=== PATIENT | female | born 1975 | race Caucasian/White ===

== ENCOUNTER 2016-06-27 22:33 | Emergency (ER) | payer OTHER ==
[~2016-06-27] VITALS: Ht 144.8 cm; Wt 75.5 kg
[~2016-06-27 22:33] MED LIST: IBUP-1542 PO; ULT50 PO
[2016-06-27 22:35] VITALS: Ht 144.8 cm; Wt 75.5 kg
[2016-06-28] MEDS ORDERED: morphine 4 MG/ML VIAL IV STA (00:40)
[2016-06-28] MEDS ORDERED: ONDANSETRON 4 MG INJ IV STA (00:40)
[2016-06-28 01:28] LABS: BASOPHIL # 0.1 10^3/ul (0.0-0.1); BASOPHILS % 0.5 % (0.0-2.0); EOSINOPHILS # 0.2 10^3/ul (0.0-0.5); EOSINOPHILS % 1.6 % (0.0-7.0); HEMATOCRIT 31.8 % (37.0-47.0); HEMOGLOBIN 10.8 g/dl (12.0-16.0); LYMPHOCYTES % 18.6 % (15.0-51.0); MEAN CORPUSCULAR HGB CONC 34.1 g/dl (32.0-37.0); MEAN PLATELET VOLUME 9.3 fl (7.4-10.4); MONOCYTE # 0.8 10^3/ul (0.3-0.9); MONOCYTES % 7.3 % (0.0-11.0); NEUTROPHIL # 7.7 10^3/ul (1.6-7.5); PLATELET COUNT 283 10^3/UL (140-440); RED BLOOD COUNT 3.61 10^6/ul (4.20-5.40); RED CELL DISTRIBUTION WIDTH 13.9 % (11.5-14.5); UNCORRECTED WBC 10.8 10^3/ul (4.8-10.8); WHITE BLOOD COUNT 10.8 10^3/ul (4.8-10.8)
[2016-06-28 01:29] LABS: ALBUMIN 4.1 g/dl (3.3-4.9)
[2016-06-28 01:29] LABS: ADD UMIC YES; URINE BILIRUBIN (Dip) NEGATIVE (NEGATIVE); URINE BLOOD (Dip) TRACE (NEGATIVE); URINE COLOR LT. YELLOW (YELLOW); URINE GLUCOSE (Dip) NEGATIVE (NEGATIVE); URINE KETONES (Dip) NEGATIVE (NEGATIVE); URINE LEUKOCYTE ESTERASE (Dip) NEGATIVE (NEGATIVE); URINE NITRITE (Dip) NEGATIVE (NEGATIVE); URINE TOTAL PROTEIN (Dip) NEGATIVE (NEGATIVE); URINE UROBILINOGEN (Dip) 0.2 E.U./dL (0.1-1.0)
[2016-06-28 01:30] LABS: POTASSIUM 3.8 mmol/L (3.5-5.1)
[2016-06-28 01:32] LABS: BILIRUBIN,INDIRECT 0.2 mg/dl (0-1.1); BILIRUBIN,TOTAL 0.2 mg/dl (0.2-1.3); CREATININE 0.63 mg/dl (0.44-1.00)
[2016-06-28 01:33] LABS: ALBUMIN/GLOBULIN RATIO 1.1; CALCIUM 8.7 mg/dl (8.4-10.2); CONDITION 1; TOTAL PROTEIN 7.8 g/dl (6.1-8.1)
[2016-06-28 01:36] LABS: BACTERIA,URINE FEW; SQUAMOUS EPITHELIAL CELL,UR MANY; URINE RBCS 0-2 /HPF (0)
--- NOTE | 2016-06-28 01:42 | RADRPT ---
PROCEDURE: CT Abdomen and pelvis without contrast. CLINICAL INDICATION: Abdominal pain. TECHNIQUE: CT scan of the abdomen and pelvis was performed on the [email or web address] LightSpeed 6 4 slice VCT scanner. Contiguous axial images using 2.5 mm slice thickness were obtained from the suhail ng bases to the ischial tuberosities without intravenous contrast. Coronal and sagittal reformatted images were also obtained. Images were reviewed on the PACS workstation. One or more of the following dose reduction techniques were used: - Automated exposure control. - Adjustment of the mA and/or kV according to patient size. - Use of iterative reconstruction technique. Exam CTD/vol = 13.41 mGy. Total exam DLP = 792.76 mGy-cm. COMPARISON: None. FINDINGS: Evaluation of the lung bases demonstrates minimal bibasilar atelectasis. Bilateral breast implants a re present. Abdomen: The liver is normal in size. There is no focal mass or dilatation of the biliary tree. T he gallbladder is not distended. The spleen, pancreas and bilateral adrenal glands are within jose alberto l limits. Bilateral kidneys are normal in size with no contour deforming mass identified. There is no radiopaque renal or ureteral calculus identified. There is no hydronephrosis or hydroureter. T here is no retroperitoneal adenopathy. The abdominal aorta is of normal caliber. There is no abnormal bowel wall thickening or distension. There is no bowel obstruction or free air . A normal appendix is identified. There is no diverticulosis or diverticulitis. There is no asci bucky. Pelvis: The bladder is unremarkable. The uterus is unremarkable. There is a cystic structure with in the right adnexa measuring 2.9 x 2.6 cm. There is a cystic structure within the left adnexa marni uring 1.7 x 1.5 cm. There is mild to moderate hyperdense pelvic free fluid consistent with hemorrha ge. There is no significant pelvic adenopathy. Evaluation of the osseous structures demonstrates no suspicious lytic or blastic lesion. IMPRESSION: Mild to moderate hyperdense pelvic free fluid consistent with hemorrhage and suspicious for a ruptur ed cyst. Further evaluation by pelvic ultrasound is recommended. Right ovarian 2.9 cm cyst. Left ovarian 1.7 cm cyst. .Kishor Ewing MD, MD Date Time Electronically viewed and signed by .Kishor Ewing MD, MD on 06/28/2016 01:42 .T/
[2016-06-28] MEDS ORDERED: ULT50 PO (01:57)
[2016-06-28] MEDS ORDERED: ONDA4TAB14 PO (01:57)
--- NOTE | 2016-06-28 01:57 | ERD ---
ER Documentation Chief Complaint Date/Time DATE: 06/28/16 TIME: 01:53 Chief Complaint B flank pain radiating to the belly since HPI 41-year-old female with no significant past medical history presents the ED complaining of generalized abdominal pain that started 5 days ago. States that she started to have one episode of nonbilious nonbloody vomiting. Describes it as throbbing and rates it a 9 out of 10. States that it radiates to her back. States that her last menses was on June 11, 2016. Denies any fever, chills , chest pain, shortness of breath, diarrhea, rashes. Denies any vaginal discharge, vaginal bleeding. Ports that she is unsure if she has hypo-or hyperthyroidism. Denies any abdominal surgeries. Reports that she has normal bowel movements daily. ROS All systems reviewed and are negative except as per history of present illness. Medications Home Meds Active Scripts Ondansetron (Ondansetron Odt) 4 Mg Tab.rapdis, 4 MG PO Q6H Y for NAUSEA AND/OR VOMITING, #10 TAB Prov:TASHIA NGUYỄN PA-C 06/28/16 Tramadol HCl (Tramadol HCl) 50 Mg Tablet, 50 MG PO Q4 Y for PAIN, #20 TAB Prov:TASHIA NGUYỄN PA-C 06/28/16 Tramadol HCl (Tramadol HCl) 50 Mg Tablet, 50 MG PO Q6 Y for PAIN, #20 TAB 0 Refills Prov:YOEL KENDALL PA-C 10/09/15 Ibuprofen* (Motrin*) 600 Mg Tab, 600 MG PO Q8, #30 TAB 0 Refills Prov:YOEL KENDALL PA-C 10/09/15 Allergies Allergies: Coded Allergies: No Known Allergy (Unverified , 06/27/16) PMhx/Soc Medical and Surgical Hx: pt denies Medical Hx, pt denies Surgical Hx Hx Alcohol Use: No Hx Substance Use: No Hx Tobacco Use: No Physical Exam Vitals Vital Signs Date Time Temp Pulse Resp B/P Pulse Ox O2 Delivery O2 Flow Rate FiO2 06/27/16 22:35 99.2 91 18 135/74 99 Physical Exam Const: [id number], well-nourished. In no acute distress. Head: Atraumatic, normocephalic Eyes: Normal Conjunctiva without injection. No purulent discharge. ENT: Normal external ear, nose. Moist oropharynx without tonsillar exudates. Non -erythematous pharynx. Uvula midline. No drooling. No trismus. Neck: No cervical midline tenderness. Full range of motion. No meningismus. No cervical lymphadenopathy. No JVD. Resp: Clear to auscultation bilaterally. No wheezing, rhonchi, rales, or crackles. No accessory muscle use. No retractions. Cardio: Regular rate and rhythm. No murmurs, rubs or gallops. Abd: Soft, generalized tenderness to palpation, non distended. Normal bowel sounds. No palpable masses. No rebound tenderness. No guarding. Negative McBurney's point. Negative psoas sign. Negative obturator sign. Skin: No petechiae or rashes Back: No midline tenderness. No CVA tenderness. Ext: No cyanosis, or edema. Neur: Awake and alert. Normal gait. Normal coordination. Psych: Normal Mood and Affect Result Diagram: 06/28/169906/28/1699 Results 24 hrs Laboratory Tests Test 06/28/16 01:00 06/28/16 01:09 Alanine Aminotransferase (ALT/SGPT) 21IU/L Albumin 4.1g/dl Albumin/Globulin Ratio 1.10 Alkaline Phosphatase 71IU/L Anion Gap 15 Aspartate Amino Transf (AST/SGOT) 19IU/L Basophils # 0.110^3/ul Basophils % 0.5% Blood Urea Nitrogen 16mg/dl Calcium Level 8.7mg/dl Carbon Dioxide Level 26mmol/L Chloride Level 103mmol/L Creatinine 0.63mg/dl Direct Bilirubin 0.00mg/dl Eosinophils # 0.210^3/ul Eosinophils % 1.6% Globulin 3.70g/dl Glucose Level 100mg/dl Hematocrit 31.8% Hemoglobin 10.8g/dl Indirect Bilirubin 0.2mg/dl Lipase 145U/L Lymphocytes # 2.010^3/ul Lymphocytes % 18.6% Mean Corpuscular Hemoglobin 30.0pg Mean Corpuscular Hemoglobin Concent 34.1g/dl Mean Corpuscular Volume 88.0fl Mean Platelet Volume 9.3fl Monocytes # 0.810^3/ul Monocytes % 7.3% Neutrophils # 7.710^3/ul Neutrophils % 72.0% Nucleated Red Blood Cells # 0.010^3/ul Nucleated Red Blood Cells % 0.0/100WBC Platelet Count 84240^3/UL Potassium Level 3.8mmol/L Red Blood Count 3.6110^6/ul Red Cell Distribution Width 13.9% Sodium Level 140mmol/L Total Bilirubin 0.2mg/dl Total Protein 7.8g/dl White Blood Count 10.810^3/ul Urine Amorphous Phosphates MODERATE Urine Bacteria FEW Urine Bilirubin NEGATIVE Urine Clarity CLEAR Urine Color LT. YELLOW Urine Glucose NEGATIVE% Urine Hemoglobin TRACE Urine Ketones NEGATIVE Urine Leukocyte Esterase NEGATIVE Urine Microscopic RBC 0-2/HPF Urine Microscopic WBC 0-2/HPF Urine Nitrite NEGATIVE Urine Specific [place] 1.020 Urine Squamous Epithelial Cells MANY Urine Total Protein NEGATIVE Urine Urobilinogen 0.2 E.U./dL Urine pH 8.0 Current Medications Medications (Trade) Dose Ordered Sig/Agustin Route PRN Reason Start Time Stop Time Status Last Admin Dose Admin Morphine Sulfate (morphine) 4 mg ONCE STAT IV 06/28/16 00:40 06/28/16 00:43 DC 06/28/16 01:09 Ondansetron HCl (Zofran Inj) 4 mg ONCE STAT IV 06/28/16 00:40 06/28/16 00:43 DC 06/28/16 01:06 Procedures/MDM This is a 41-year-old female presents the ED complaining of generalized abdominal pain that started 5 days ago associated with nonbilious nonbloody vomiting. Patient is afebrile nontoxic appearing. Patient has normal vital signs. Patient was further worked up with CBC, CMP, lipase, UA, urine , CT of the abdomen and pelvis without contrast. Patient's pain and symptoms have improved after treatment with 4 mg IV Zofran, 4 mg IV morphine. CBC: No leukocytosis. No e/o of systemic infection. No e/o anemia. CMP: No e/o severe acidosis, alkalosis, renal failure, diabetic ketoacidosis, liver disease Lipase within normal limits. Urine: No leukocyte esterase, no nitrites, no hematuria. Urine : Negative PROCEDURE: CT Abdomen and pelvis without contrast. CLINICAL INDICATION: Abdominal pain. TECHNIQUE: CT scan of the abdomen and pelvis was performed on the [employer] 64 slice VCT scanner. Contiguous axial images using 2.5 mm slice thickness were obtained from the lung bases to the ischial tuberosities without intravenous contrast. Coronal and sagittal reformatted images were also obtained. Images were reviewed on the PACS workstation. One or more of the following dose reduction techniques were used: - Automated exposure control. - Adjustment of the mA and/or kV according to patient size. - Use of iterative reconstruction technique. Exam CTD/vol = 13.41 mGy. Total exam DLP = 792.76 mGy-cm. COMPARISON: None. FINDINGS: Evaluation of the lung bases demonstrates minimal bibasilar atelectasis. Bilateral breast implants are present. Abdomen: The liver is normal in size. There is no focal mass or dilatation of the biliary tree. The gallbladder is not distended. The spleen, pancreas and bilateral adrenal glands are within normal limits. Bilateral kidneys are normal in size with no contour deforming mass identified. There is no radiopaque renal or ureteral calculus identified. There is no hydronephrosis or hydroureter. There is no retroperitoneal adenopathy. The abdominal aorta is of normal caliber. There is no abnormal bowel wall thickening or distension. There is no bowel obstruction or free air. A normal appendix is identified. There is no diverticulosis or diverticulitis. There is no ascites. Pelvis: The bladder is unremarkable. The uterus is unremarkable. There is a cystic structure within the right adnexa measuring 2.9 x 2.6 cm. There is a cystic structure within the left adnexa measuring 1.7 x 1.5 cm. There is mild to moderate hyperdense pelvic free fluid consistent with hemorrhage. There is no significant pelvic adenopathy. Evaluation of the osseous structures demonstrates no suspicious lytic or blastic lesion. IMPRESSION: Mild to moderate hyperdense pelvic free fluid consistent with hemorrhage and suspicious for a ruptured cyst. Further evaluation by pelvic ultrasound is recommended. Right ovarian 2.9 cm cyst. Left ovarian 1.7 cm cyst. A differential diagnosis considered includes but is not limited to gastritis, GERD, peptic ulcer disease, cholecystitis, choledocholithiasis, cholangitis, pancreatitis, appendicitis, bowel obstruction, ileus, volvulus, nephrolithiasis , pyelonephritis, hepatitis, perforated viscus, diverticulitis, abdominal hernia , acute abdomen, mesenteric ischemia or other emergent conditions. Patient's CAT scan shows bilateral ovarian cysts Pending the pelvic ultrasound, this patient will be signed off to my colleague, JESUSITA Mehta. If pelvic ultrasound is negative, patient will be discharged with a prescription for tramadol and Zofran. Discharge medications: Tramadol, Zofran Follow up with primary care physician in 1-2 days for referral to [facility]. Instructed patient to return to the ED sooner for any worsening symptoms. Patient's questions were answered. Patient understood and agreed with discharge plan. Patient discharged stable. Departure Diagnosis: Primary Impression: Abdominal pain Abdominal location: generalized Qualified Code: R10.84 - Generalized abdominal pain Additional Impression: Ovarian cyst Laterality: bilateral Qualified Code: N83.201 - Cysts of both ovaries Condition: Stable TASHIA NGUYỄN PA-C Jun 28, 2016 01:56
--- NOTE | 2016-06-28 02:45 | RADRPT ---
PROCEDURE: Pelvic ultrasound. CLINICAL INDICATION: Pelvic pain. TECHNIQUE: Multiple sonographic images of the pelvis were obtained utilizing a transabdominal and endovaginal technique. The images were reviewed on a PACS workstation. COMPARISON: None. FINDINGS: The uterus is visualized and measures 9.5 x 4.1 x 5.7 cm. No abnormal uterine mass is identified. M ultiple Nabothian cysts are seen within the cervix. The endometrial echo complex is homogeneous and measures 9.7 mm. There is mild pelvic free fluid with heterogeneous area within the right adnexa and cul-de-sac sugge stive of hemorrhage. The right ovary has a normal echotexture and measures 5.2 x 3.8 x 3.5 cm. The left ovary has a normal echotexture and measures 3.3 x 1.5 x 1.9 cm. There is normal flow to both ovaries. There is a hypoechoic cyst within the right ovary measuring 2.6 x 2.9 x 2.4 cm. No adnexa l masses are identified. IMPRESSION: Mild echogenic pelvic free fluid suggestive of hemorrhage. Right ovarian 2.9 cm cyst. .Kishor Ewing MD, MD Date Time Electronically viewed and signed by .Kishor Ewing MD, MD on 06/28/2016 02:45 .T/
--- NOTE | 2016-06-28 03:01 | QN ---
Documentation Comment LAURENCE Osuna signed out this patient to me with pending ultrasound results. This was reviewed, I spoke to OB Laborist, Dr. Teague, discussed the case with her. Considering patient's pain is improved, patient's hemoglobin is stable, at this time, there is low suspicion for abdominal emergencies. Patient may have ruptured an ovarian cyst, possible hemorrhagic cyst, at this time since patient' s hemodynamically stable and appears well, outpatient management is appropriate , she states most likely patient's possible blood in the pelvic area can be absorbed by the body and can be self-limiting. Patient though is advised to return in 8 hours for reevaluation of symptoms, especially if she has more severe pain, admission is necessary if pain continues to persist and she is dizzy, and hemodynamically stable. At this time, patient was reevaluated, was given IV fluids, normal saline IV bolus here in emergency department, patient was allowed to ambulate, during evaluation, patient did not have any dizziness , did not have any symptoms of hemodynamic instability. I discussed the case with the patient, discussed with her strict return to ER precautions, patient is advised to return in 8 hours, patient agrees with the plan, verbalized understanding. Pain is controlled at this time. Patient is stable at this time. Patient will be discharged according to Duane Richey's instructions. PROCEDURE: Pelvic ultrasound. CLINICAL INDICATION: Pelvic pain. TECHNIQUE: Multiple sonographic images of the pelvis were obtained utilizing a transabdominal and endovaginal technique. The images were reviewed on a PACS workstation. COMPARISON: None. FINDINGS: The uterus is visualized and measures 9.5 x 4.1 x 5.7 cm. No abnormal uterine mass is identified. Multiple Nabothian cysts are seen within the cervix. The endometrial echo complex is homogeneous and measures 9.7 mm. There is mild pelvic free fluid with heterogeneous area within the right adnexa and cul-de-sac suggestive of hemorrhage. The right ovary has a normal echotexture and measures 5.2 x 3.8 x 3.5 cm. The left ovary has a normal echotexture and measures 3.3 x 1.5 x 1.9 cm. There is normal flow to both ovaries. There is a hypoechoic cyst within the right ovary measuring 2.6 x 2.9 x 2.4 cm. No adnexal masses are identified. IMPRESSION: Mild echogenic pelvic free fluid suggestive of hemorrhage. Right ovarian 2.9 cm cyst. .Kishor Ewing MD, Date Time Electronically viewed and signed by .Kishor Ewing MD, on 06/28/2016 02:45 .Andre/ KENNETH PITT NP Jun 28, 2016 03:01
[2016-06-28] MEDS ORDERED: SOD CHLORIDE 0.9% 1,000 ML IV ONE (04:00)
[2016-06-28 04:07] VITALS: BP 104/63; PULSE 67; RESP 18; TEMP 98.1
== END 2016-06-28 04:51 | disposition home or self-care (01) ==
LOC: FTE 22:33
DX: R10.84 Generalized abdominal pain (principal); N83.201 Unspecified ovarian cyst, right side; N83.202 Unspecified ovarian cyst, left side; R11.10 Vomiting, unspecified; R10.2 Pelvic and perineal pain
CPT/HCPCS: 74176; 76830; 76856; 80053; 81001; 81003; 83690; 85025; J2270; J2405; J7030; 36415; 96374; 96375

== ENCOUNTER 2017-05-29 18:58 | Emergency (ER) | payer OTHER ==
[~2017-05-29] VITALS: Ht 144.8 cm; Wt 75.3 kg
[~2017-05-29 18:58] MED LIST changes: +ONDA4TAB14 PO; +TRAM50TA2 PO; -ULT50 PO
[2017-05-29 19:05] VITALS: Ht 144.8 cm; Wt 75.3 kg
--- NOTE | 2017-05-29 20:27 | ERD ---
ER Documentation Chief Complaint Chief Complaint STANLEY since this AM, no injury nor Neuro deficits HPI 42-year-old female presents here to emergency department for complaints of headache as throbbing pain, 6/10 scale, not better or worse with anything. Together with a headache pain, sharp pain,6/10 scale, accompanied with palpitations and nausea. This has been resolved, the headache has continued. Patient has had this type of headache long time before, felt the same way. Patient did not take any medications to help with symptoms. Patient has history of hypothyroidism. Patient also has history of hyperlipidemia. ROS All systems reviewed and are negative except as per history of present illness. Medications Home Meds Active Scripts Ondansetron (Ondansetron Odt) 4 Mg Tab.rapdis, 4 MG PO Q6H Y for NAUSEA AND/OR VOMITING, #10 TAB Prov:TASHIA NGUYỄN PA-C 06/28/16 Tramadol HCl (Tramadol HCl) 50 Mg Tablet, 50 MG PO Q4 Y for PAIN, #20 TAB Prov:TASHIA NGUYỄN PA-C 06/28/16 Tramadol HCl (Tramadol HCl) 50 Mg Tablet, 50 MG PO Q6 Y for PAIN, #20 TAB 0 Refills Prov:YOEL KENDALL PA-C 10/09/15 Ibuprofen* (Motrin*) 600 Mg Tab, 600 MG PO Q8, #30 TAB 0 Refills Prov:YOEL KENDALL PA-C 10/09/15 Allergies Allergies: Coded Allergies: No Known Allergy (Unverified , 06/27/16) PMhx/Soc Medical and Surgical Hx: pt denies Surgical Hx History of Surgery: No Anesthesia Reaction: No Hx Neurological Disorder: No Hx Respiratory Disorders: No Hx Cardiac Disorders: No Hx Psychiatric Problems: No Hx Miscellaneous Medical Probl: Yes (HYPOTHYROID) Hx Alcohol Use: No Hx Substance Use: No Hx Tobacco Use: No Smoking Status: Never smoker FmHx Family History: No coronary disease, No diabetes, No other Physical Exam Vitals Vital Signs Date Time Temp Pulse Resp B/P Pulse Ox O2 Delivery O2 Flow Rate FiO2 05/29/17 19:05 97.7 88 20 134/82 98 Physical Exam GENERAL: The patient is well developed and appropriate for usual state of health, in no apparent distress. CHEST: Clear to auscultation bilaterally. There are no rales, wheezes or rhonchi. HEART: Regular rate and rhythm. No murmurs, clicks, rubs or gallops. No S3 or S4. ABDOMEN: Soft, nontender and nondistended. Good bowel sounds. No rebound or guarding. No gross peritonitis. No gross organomegaly or masses. No Herndon sign or McBurney point tenderness. BACK: No midline or flank tenderness. EXTREMITIES: Equal pulses bilaterally. There is no peripheral clubbing, cyanosis or edema. No focal swelling or erythema. Full range of motion. Grossly neurovascularly intact. NEURO: Alert and oriented. Cranial nerves 2-12 intact. Motor strength in all 4 extremities with 5/5 strength. Sensation grossly intact. Normal speech and gait. Negative Romberg sign. Negative pronator drift. SKIN: There is no apparent rash or petechia. The skin is warm and dry. HEMATOLOGIC AND LYMPHATIC: There is no evidence of excessive bruising or lymphedema. No gross cervical, axillary, or inguinal lymphadenopathy. Result Diagram: 05/29/17202905/29/17 2030 Results 24 hrs Laboratory Tests Test 05/29/17 20:30 White Blood Count 12.310^3/ul Red Blood Count 4.3410^6/ul Hemoglobin 12.5g/dl Hematocrit 38.2% Mean Corpuscular Volume 88.0fl Mean Corpuscular Hemoglobin 28.8pg Mean Corpuscular Hemoglobin Concent 32.7g/dl Red Cell Distribution Width 13.1% Platelet Count 78643^3/UL Mean Platelet Volume 11.4fl Neutrophils % 72.4% Lymphocytes % 19.2% Monocytes % 6.4% Eosinophils % 1.1% Basophils % 0.5% Nucleated Red Blood Cells % 0.0/100WBC Neutrophils # 8.910^3/ul Lymphocytes # 2.410^3/ul Monocytes # 0.810^3/ul Eosinophils # 0.110^3/ul Basophils # 0.110^3/ul Nucleated Red Blood Cells # 0.010^3/ul Sodium Level 139mmol/L Potassium Level 4.0mmol/L Chloride Level 97mmol/L Carbon Dioxide Level 31mmol/L Anion Gap 15 Blood Urea Nitrogen 13mg/dl Creatinine 0.65mg/dl Glucose Level 109mg/dl Calcium Level 9.7mg/dl Troponin I < 0.012ng/ml Current Medications Medications (Trade) Dose Ordered Sig/Agustin Route PRN Reason Start Time Stop Time Status Last Admin Dose Admin Acetam/Butalbital/ Caffeine/Codeine (Fioricet/ Codeine) 1 cap ONCE ONCE PO 05/29/17 20:30 05/29/17 20:31 DC 05/29/17 20:20 Patient was given medication for pain here in emergency department, after treatment, patient verbalized feeling much better. Patient's pain is improved. EKG was done, read by me and is normal sinus rhythm at a rate of 90, normal axis , there is no ST changes or changes in the EKG that indicates any cardiac emergencies at this time. Patient's EKG was also reviewed by Dr. Ho. Impression: no acute findings on EKG PROCEDURE: CT Brain without contrast. CLINICAL INDICATION: Pain, headache TECHNIQUE: Routine CT scan of the brain was performed on a high resolution multi detector scanner without intravenous contrast. One or more of the following dose reduction techniques were used: Automated exposure control; Adjustment of the mA and/or kV according to patient size; Use of iterative reconstruction technique. CTDI = 44 mGy. DLP = 630 mGy-cm. DICOM images are available. COMPARISON: No prior relevant examinations are available for comparison. FINDINGS: Hemorrhage: No evidence of intracranial hemorrhage. Acute ischemic changes: No evidence of acute ischemic changes. Mass effect: None. Parenchymal volume: Within normal limits for age. Ventricular system: Concordant with parenchymal volume. Chronic changes: Parenchymal attenuation is within normal limits. Extracranial soft tissues: Unremarkable. Calvarium: No fractures. Paranasal sinuses: Visualized paranasal sinuses are clear. Mastoid air cells: Visualized mastoid air cells are clear. IMPRESSION: No acute intracranial abnormalities. Normal appearance of the brain parenchyma. RPTAT: AADD .Logan Barnett MD, Date Time Electronically viewed and signed by .Logan Barnett MD, on 05/29/2017 21:05 .B/ CC: KENNETH PITT NP PROCEDURE: XR Chest. CLINICAL INDICATION: Chest pain. TECHNIQUE: Single frontal view of the chest was obtained. COMPARISON: None FINDINGS: The cardiomediastinal silhouette is normal in size. No focal consolidation is seen. No pleural effusion is seen. No definite pneumothorax. No acute osseous abnormality. IMPRESSION: No radiographic evidence of an acute cardiopulmonary process. RPTAT: HPWH Nilam Naidu Physician Date Time Electronically viewed and signed by Nilam Naidu Physician on 05/29/2017 21:00 PH/ CC: KENNETH PITT POLICE DISPATCHER Procedures/MDM Medical Decision Making: Symptoms nonspecific at this time, possible atypical chest pain negative troponin, low risk for acute coronary syndrome. There is low suspicion for cardiopulmonary emergencies at this time. Patient has low risk factors. EKG is normal, there is no changes in the EKG that indicates cardiac emergencies. Chest X-ray does not show cardiopulmonary emergencies at this time. There is low suspicion for aortic aneurysm, myocardial infarction, pneumothorax, pleural effusion, pulmonary embolism, or any other cardiopulmonary emergencies at this time. Cardiac markers are normal. Patient symptoms are consistent with migraine headache, possible tension headache. There is low suspicion for neurological emergencies at this time since patients neurologic exam is normal. Patient did not have any altered level consciousness, vomiting, changes in balance or memory and did not have any head injury. Patients CT scan of the head does not show any neurological emergencies at this time. Lumbar puncture not indicated at this time. Low suspicion for subarachnoid bleed. Is advised to follow-up with primary care doctor 1-2 days for reevaluation of symptoms. Patient was advised to return to emergency department for any worsening symptoms Rx: Fioricet with codeine, Zofran ibuprofen Dispostion: Home. Stable Disclaimer: Inadvertent spelling and grammatical errors are likely due to EHR/ dictation software use and do not reflect on the overall quality of patient care. Also, please note that the electronic time recorded on this note does not necessarily reflect the actual time of the patient encounter. Departure Diagnosis: Primary Impression: Headache Headache type: unspecified Headache chronicity pattern: acute headache Intractability: not intractable Qualified Code: R51 - Acute nonintractable headache, unspecified headache type Additional Impression: Atypical chest pain Condition: Stable Patient Instructions: Chest Pain, Uncertain Cause, Self-Care for Headaches KENNETH PITT NP May 29, 2017 20:27
[2017-05-29] MEDS ORDERED: ACET/BUTAL/CAFF/CODEINE CAP PO ONE (20:30)
[2017-05-29 20:54] LABS: BASOPHIL # 0.1 10^3/ul (0.0-0.1); BASOPHILS % 0.5 % (0.0-2.0); EOSINOPHILS # 0.1 10^3/ul (0.0-0.5); EOSINOPHILS % 1.1 % (0.0-7.0); HEMATOCRIT 38.2 % (37.0-47.0); HEMOGLOBIN 12.5 g/dl (12.0-16.0); LYMPHOCYTES # 2.4 10^3/ul (0.8-2.9); LYMPHOCYTES % 19.2 % (15.0-51.0); MEAN CORPUSCULAR HEMOGLOBIN 28.8 pg (29.0-33.0); MEAN CORPUSCULAR HGB CONC 32.7 g/dl (32.0-37.0); MEAN PLATELET VOLUME 11.4 fl (7.4-10.4); MONOCYTE # 0.8 10^3/ul (0.3-0.9); MONOCYTES % 6.4 % (0.0-11.0); NEUTROPHIL # 8.9 10^3/ul (1.6-7.5); NEUTROPHILS % 72.4 % (39.0-77.0); PLATELET COUNT 328 10^3/UL (140-415); RED BLOOD COUNT 4.34 10^6/ul (4.20-5.40); RED CELL DISTRIBUTION WIDTH 13.1 % (11.5-14.5); WHITE BLOOD COUNT 12.3 10^3/ul (4.8-10.8)
--- NOTE | 2017-05-29 21:01 | RADRPT ---
PROCEDURE: XR Chest. CLINICAL INDICATION: Chest pain. TECHNIQUE: Single frontal view of the chest was obtained. COMPARISON: None FINDINGS: The cardiomediastinal silhouette is normal in size. No focal consolidation is seen. No pleural effusion is seen. No definite pneumothorax. No acute osseous abnormality. IMPRESSION: No radiographic evidence of an acute cardiopulmonary process. RPTAT: HPWH Nilam Naidu Physician Date Time Electronically viewed and signed by Nilam Naidu Physician on 05/29/2017 21:00 /
--- NOTE | 2017-05-29 21:05 | RADRPT ---
PROCEDURE: CT Brain without contrast. CLINICAL INDICATION: Pain, headache TECHNIQUE: Routine CT scan of the brain was performed on a high resolution multi detector scanner without intravenous contrast. One or more of the following dose reduction techniques were used: Auto mated exposure control; Adjustment of the mA and/or kV according to patient size; Use of iterative r econstruction technique. CTDI = 44 mGy. DLP = 630 mGy-cm. DICOM images are available. COMPARISON: No prior relevant examinations are available for comparison. FINDINGS: Hemorrhage: No evidence of intracranial hemorrhage. Acute ischemic changes: No evidence of acute ischemic changes. Mass effect: None. Parenchymal volume: Within normal limits for age. Ventricular system: Concordant with parenchymal volume. Chronic changes: Parenchymal attenuation is within normal limits. Extracranial soft tissues: Unremarkable. Calvarium: No fractures. Paranasal sinuses: Visualized paranasal sinuses are clear. Mastoid air cells: Visualized mastoid air cells are clear. IMPRESSION: No acute intracranial abnormalities. Normal appearance of the brain parenchyma. RPTAT: AADD .Logan Barnett MD, MD Date Time Electronically viewed and signed by .Logan Barnett MD, on 05/29/2017 21:05 .B/
[2017-05-29 21:20] LABS: ANION GAP 15 (8-16); BLOOD UREA NITROGEN 13 mg/dl (7-20); CALCIUM 9.7 mg/dl (8.4-10.2); CARBON DIOXIDE 31 mmol/L (21-31); CHLORIDE 97 mmol/L (97-110); CREATININE 0.65 mg/dl (0.44-1.00); GLUCOSE 109 mg/dl (70-220); SODIUM 139 mmol/L (135-144)
[2017-05-29 21:40] LABS: TROPONIN-I < 0.012 ng/ml (0.00-0.12)
[2017-05-29] MEDS ORDERED: IBUP-1542 PO (22:13)
[2017-05-29] MEDS ORDERED: ABCC1C PO (22:13)
[2017-05-29] MEDS ORDERED: ONDA4TAB14 PO (22:13)
[2017-05-29] MEDS ORDERED: ONDANSETRON 4 MG INJ IV STA (22:50)
[2017-05-29 23:05] VITALS: BP 109/58; PULSE 74; RESP 18; TEMP 98.1
== END 2017-05-29 23:13 | disposition home or self-care (01) ==
LOC: FTE 18:58
DX: R07.89 Other chest pain (principal); E03.9 Hypothyroidism, unspecified
CPT/HCPCS: 36415; 70450; 71010; 80048; 84484; 85025; 93005; 96374; 99285; J2405

== ENCOUNTER 2017-08-14 12:51 | Emergency (ER) | END 2017-08-14 17:26 | disposition home or self-care (01) ==